=== PATIENT | female | born 1945 | race Caucasian/White ===

== ENCOUNTER 2017-01-15 15:26 | Inpatient (IN) | payer MEDICARE, OTHER ==
[~2017-01-15] VITALS: Ht 152.4 cm; Wt 33.1 kg
[2017-01-15] MEDS: RESP: ALBUTEROL 2.5 MG/IPRATROPIUM 0.5 MG NEB (SCH) NEB (10:18)
[2017-01-15 15:28] VITALS: BP 203/103; PULSE 61; RESP 14; TEMP 97.7; O2SAT 96
--- NOTE | 2017-01-15 15:46 | PD ---
Physical Exam Date Seen by Provider: Jan 15, 2017 Time Seen by Provider: 15:43 Narrative 71 YOWF C/O FOR PSYCH EVAL. FOR DEPRESSION. NO SI OR HI. SLEEPING MORE NOT TAKING CARE OF HERSELF VS REVIEWED WAITING FOR BED PLACEMENT Data Data Last Documented VS Vital Signs Date Time Temp Pulse Resp B/P Pulse Ox O2 Delivery O2 Flow Rate FiO2 01/15/17 15:28 97.7 61 14 203/103 96 Room Air MDM Supervised Visit with ZORAIDA: Gilbert Alexander Jan 15, 2017 15:46
[2017-01-15 16:13] LABS: AUTOMATED NEUTROPHIL # 3.2 TH/MM3 (1.8-7.7); BASOPHIL % 0.5 % (0.0-2.0); EOSINOPHIL # 0.1 TH/MM3 (0-0.4); EOSINOPHIL % 2.1 % (0.0-4.0); HEMATOCRIT 40.1 % (35.0-46.0); HEMO FLAGS DIFF FINAL; LYMPH % 26.9 % (9.0-44.0); LYMPHOCYTE # 1.4 TH/MM3 (1.0-4.8); MEAN CELL VOLUME 87.9 FL (80.0-100.0); MEAN CORPUSCULAR HEMOGLOBIN 30.4 PG (27.0-34.0); MEAN CORPUSCULAR HGB CONC 34.6 % (32.0-36.0); MONO % 6.8 % (0.0-8.0); NEUT % 63.7 % (16.0-70.0); PLATELET COUNT 209 TH/MM3 (150-450); RED BLOOD COUNT 4.56 MIL/MM3 (4.00-5.30); RED CELL DISTRIBUTION WIDTH 13.4 % (11.6-17.2)
--- NOTE | 2017-01-15 16:18 | RADRPT ---
EXAM DATE/TIME: 01/15/2017 15:54 [place] COMPARISON: No previous studies available for comparison. INDICATIONS : No chest complaint. Psych eval. MEDICAL HISTORY : None. SURGICAL HISTORY : None. ENCOUNTER: Initial ACUITY: 1 day PAIN SCORE: 0/10 LOCATION: Bilateral chest FINDINGS: A single AP erect portable view of the chest was obtained and demonstrates bilateral hyperinflation w ith bullous change in the upper lobes. There is mild patchy opacity at the right lung base. The heart size is within normal limits with no polar edema. There is no evidence of effusion. The bony thorax is intact. CONCLUSION: 1. Mild patchy opacity in the right lung base which could indicate early pneumonia. 2. Hyperinflation and underlying emphysema. Calvin Cabello MD on January 15, 2017 at 16:15 Board Certified Radiologist. This report was verified electronically.
[2017-01-15] MEDS ORDERED: SIMV20TA PO (16:20)
[2017-01-15] MEDS ORDERED: ASPI81CH CHEW (16:20)
[2017-01-15] MEDS ORDERED: METO25TA3 PO (16:20)
[2017-01-15] MEDS ORDERED: ALBUAER3 INH (16:26)
[2017-01-15] MEDS ORDERED: UMEC1AER INH (16:26)
--- NOTE | 2017-01-15 16:29 | PD ---
HPI Chief Complaint: Psychiatric Symptoms Time Seen by Provider: 16:29 Travel History International Travel<30 days: No Contact w/Intl Traveler<30days: No Traveled to known affect area: No History of Present Illness HPI 71 year old female with history of HTN, COPD, depression, presents to the ED voluntarily for psychiatric evaluation. Pt is accompanied by her who is very concerned. He states she has not been eating; she stopped using her oxygen at night; she has been sleeping for days in a row without getting out of bed. Pt does admit to all of this but denies it with any intention to harm herself. She was at her psychiatrists office today speaking with the DEPUTY HEAD who advised she come to our ED for psychiatric admission and further evaluation. Pt states she does not need to be here and wants to go home. She did stop drinking alcohol 3 weeks ago and stopped smoking tobacco cigarettes 2 weeks ago. Denies any acute medical needs. No other symptoms to report at this time. PFSH Past Medical History Depression: Yes High Cholesterol: Yes COPD: Yes Hypertension: Yes Past Surgical History Surgical History: No Previous Surgery Social History Alcohol Use: Yes (last drink 3 weeks ago was daily drinker for many years) Tobacco Use: No (quit 3 weeks ago) Substance Use: No Allergies-Medications (Allergen,Severity, Reaction): Coded Allergies: No Known Allergies (Verified Allergy, Unknown, 01/15/17) Reported Meds & Prescriptions Reported Meds & Active Scripts Active Reported Anoro Ellipta Inh (Umeclidinium/Vilanterol) 62.5-25 Mcg/Act Aero 1 Puff INH DAILY Proair Hfa 8.5 GM Inh (Albuterol Sulfate) 90 Mcg/Act Aer 2 Puff INH Q4-6H PRN 108 mcg/actuation Aspirin 81 Mg Chew 81 Mg CHEW DAILY Simvastatin 20 Mg Tab 20 Mg PO DAILY Metoprolol Tartrate 25 Mg Tab 25 Mg PO DAILY Review of Systems Except as stated in HPI: all other systems reviewed are Neg Physical Exam Narrative GENERAL: Thin; chronically ill appearing elderly female sitting in bed in no acute distress. SKIN: Warm and dry. HEAD: Atraumatic. Normocephalic. EYES: Pupils equal and round. No scleral icterus. No injection or drainage. ENT: No nasal bleeding or discharge. Mucous membranes pink and moist. NECK: Trachea midline. No JVD. CARDIOVASCULAR: Regular rate and rhythm. RESPIRATORY: No accessory muscle use. Diminished; to auscultation. Breath sounds equal bilaterally. GASTROINTESTINAL: Abdomen soft, non-tender, nondistended. Hepatic and splenic margins not palpable. MUSCULOSKELETAL: Extremities without clubbing, cyanosis, or edema. No obvious deformities. NEUROLOGICAL: Awake and alert. No obvious cranial nerve deficits. Motor grossly within normal limits. Five out of 5 muscle strength in the arms and legs. Normal speech. Data Data Last Documented VS Vital Signs Date Time Temp Pulse Resp B/P Pulse Ox O2 Delivery O2 Flow Rate FiO2 01/15/17 16:20 17 01/15/17 15:28 97.7 61 203/103 96 Room Air Orders Complete Blood Count With Diff (01/15/17 15:46) Comprehensive Metabolic Panel (01/15/17 15:46) Thyroid Stimulating Hormone (01/15/17 15:46) Urinalysis - C+S If Indicated (01/15/17 15:46) Psych Screen (01/15/17 15:46) Drug Screen, Random Urine (01/15/17 15:46) Alcohol (Ethanol) (01/15/17 15:46) Chest, Single Ap (01/15/17 15:46) Azithromycin (Zithromax) (01/15/17 17:00) Azithromycin (Zithromax) (01/16/17 09:00) Labs Laboratory Tests Test 01/15/17 15:55 White Blood Count 5.0 TH/MM3 Red Blood Count 4.56 MIL/MM3 Hemoglobin 13.9 GM/DL Hematocrit 40.1 % Mean Corpuscular Volume 87.9 FL Mean Corpuscular Hemoglobin 30.4 PG Mean Corpuscular Hemoglobin 34.6 % Concent Red Cell Distribution Width 13.4 % Platelet Count 209 TH/MM3 Mean Platelet Volume 8.4 FL Neutrophils (%) (Auto) 63.7 % Lymphocytes (%) (Auto) 26.9 % Monocytes (%) (Auto) 6.8 % Eosinophils (%) (Auto) 2.1 % Basophils (%) (Auto) 0.5 % Neutrophils # (Auto) 3.2 TH/MM3 Lymphocytes # (Auto) 1.4 TH/MM3 Monocytes # (Auto) 0.3 TH/MM3 Eosinophils # (Auto) 0.1 TH/MM3 Basophils # (Auto) 0.0 TH/MM3 CBC Comment DIFF FINAL Differential Comment Sodium Level 139 MEQ/L Potassium Level 4.0 MEQ/L Chloride Level 103 MEQ/L Carbon Dioxide Level 30.7 MEQ/L Anion Gap 5 MEQ/L Blood Urea Nitrogen 9 MG/DL Creatinine 0.73 MG/DL Estimat Glomerular Filtration 79 ML/MIN Rate Random Glucose 61 MG/DL Calcium Level 8.9 MG/DL Total Bilirubin 0.2 MG/DL Aspartate Amino Transf 25 U/L (AST/SGOT) Alanine Aminotransferase 20 U/L (ALT/SGPT) Alkaline Phosphatase 89 U/L Total Protein 7.4 GM/DL Albumin 3.4 GM/DL Thyroid Stimulating Hormone 1.750 uIU/ML 3rd Gen Ethyl Alcohol Level LESS THAN 3 MG/DL [facility] Medical Decision Making Medical Screen Exam Complete: Yes Emergency Medical Condition: Yes Medical Record Reviewed: Yes Differential Diagnosis mood disorder versus personality disorder versus adjustment reaction disorder Narrative Course 71 year old female presents to the ED voluntarily for psychiatric evaluation. Pt appears without distress. She is denying any acute medical needs; denies suicidal or homicidal ideations. Laboratory Tests Test 01/15/17 15:55 White Blood Count 5.0 TH/MM3 Red Blood Count 4.56 MIL/MM3 Hemoglobin 13.9 GM/DL Hematocrit 40.1 % Mean Corpuscular Volume 87.9 FL Mean Corpuscular Hemoglobin 30.4 PG Mean Corpuscular Hemoglobin 34.6 % Concent Red Cell Distribution Width 13.4 % Platelet Count 209 TH/MM3 Mean Platelet Volume 8.4 FL Neutrophils (%) (Auto) 63.7 % Lymphocytes (%) (Auto) 26.9 % Monocytes (%) (Auto) 6.8 % Eosinophils (%) (Auto) 2.1 % Basophils (%) (Auto) 0.5 % Neutrophils # (Auto) 3.2 TH/MM3 Lymphocytes # (Auto) 1.4 TH/MM3 Monocytes # (Auto) 0.3 TH/MM3 Eosinophils # (Auto) 0.1 TH/MM3 Basophils # (Auto) 0.0 TH/MM3 CBC Comment DIFF FINAL Differential Comment Sodium Level 139 MEQ/L Potassium Level 4.0 MEQ/L Chloride Level 103 MEQ/L Carbon Dioxide Level 30.7 MEQ/L Anion Gap 5 MEQ/L Blood Urea Nitrogen 9 MG/DL Creatinine 0.73 MG/DL Estimat Glomerular Filtration 79 ML/MIN Rate Random Glucose 61 MG/DL Calcium Level 8.9 MG/DL Total Bilirubin 0.2 MG/DL Aspartate Amino Transf 25 U/L (AST/SGOT) Alanine Aminotransferase 20 U/L (ALT/SGPT) Alkaline Phosphatase 89 U/L Total Protein 7.4 GM/DL Albumin 3.4 GM/DL Thyroid Stimulating Hormone 1.750 uIU/ML 3rd Gen Ethyl Alcohol Level LESS THAN 3 MG/DL Lab work is without acute concern; UA is hazy with large leukocyte esterase; 4 RBC, 23 WBC, moderate bacteria. Last Impressions Chest X-Ray 01/15/17 1546 Signed Impressions: Service Date/Time: Sunday, January 15, 2017 15:54 - CONCLUSION: 1. Mild patchy opacity in the right lung base which could indicate early pneumonia. 2. Hyperinflation and underlying emphysema. Calvin Cabello MD Pt has been given azithromycin by mouth. Dr. Corley, psychiatrist has been in to see pt. Pt will be admitted. Diagnosis Primary Impression: Severe major depression, single episode, without psychotic features Additional Impressions: UTI (urinary tract infection) Qualified Code: N39.0 - Urinary tract infection without hematuria, site unspecified COPD (chronic obstructive pulmonary disease) Qualified Code: J43.9 - Pulmonary emphysema, unspecified emphysema type Condition: Jo WilsonMima co[place] WYATT Jan 15, 2017 16:29
[2017-01-15 16:33] LABS: ANION GAP 5 MEQ/L (5-15); AST (GOT) 25 U/L (15-37); BICARBONATE 30.7 MEQ/L (21.0-32.0); BLOOD UREA NITROGEN 9 MG/DL (7-18); CHLORIDE 103 MEQ/L (98-107); GLOMERULAR FILTRATION RATE 79 ML/MIN (>89); SODIUM (NA) 139 MEQ/L (136-145)
[2017-01-15 16:40] LABS: ALCOHOL LESS THAN 3 MG/DL (0-5)
[2017-01-15 16:54] LABS: ALKALINE PHOSPHATASE 89 U/L (45-117); ALT (GPT) 20 U/L (10-53); TOTAL BILIRUBIN ADULT 0.2 MG/DL (0.2-1.0)
[2017-01-15] MEDS ORDERED: AZITHROMYCIN 250 MG TAB PO ONE (17:00)
[2017-01-15] MEDS ORDERED: LORazepam 1 MG TAB PO PRN (17:15)
[2017-01-15] MEDS ORDERED: LORazepam 0.5 MG TAB PO PRN (17:15)
[2017-01-15] MEDS ORDERED: ACETAMINOPHEN 325 MG TAB PO PRN (17:15)
[2017-01-15] MEDS ORDERED: ALUMINUM/MAGNESIUM/SIMETH 30 ML CUP PO PRN (17:15)
[2017-01-15] MEDS ORDERED: LORazepam 2 MG/ML VIAL IM PRN ×2 (17:15)
[2017-01-15] MEDS ORDERED: MAGNESIUM HYDROXIDE SUSP 30 ML CUP PO PRN (17:15)
--- NOTE | 2017-01-15 17:20 | HHI.HP ---
Provisional Diagnosis Admission Date Jan 15, 2017 at 17:01 [place] I. Major depression, severe, without psychotic features. Certification of Person's Competence To Provide Express and Informed Consent I have personally examined Dayanna Sanchez , a person being served at [facility] on, Jan 15, 2017 17:10. Express and informed consent means consent voluntarily given in writing, by a competent person, after sufficient explanation and disclosure of the subject matter involved to enable the person to make a knowing and willful decision without any element of force, fraud, deceit, duress, or other form of constraint or coercion. This person is 18 years of age or older, is not now known to be incompetent to consent to treatment with a guardian advocate, and does not have a health care surrogate or proxy currently making medical treatment decisions. I have found this person to be one of the following: [x] Competent to provide express and informed consent, as defined above, for voluntary admission to this facility and is competent to provide express and informed consent for treatment. He/she has the consistent capacity to make well reasoned, willful, and knowing decisions concerning his or her medical or mental health treatment. The person fully and consistently understands the purpose of the admission for examination/placement and is fully capable of personally exercising all rights assured under [place] Incompetent to provide express and informed consent to voluntary admission, and this is incompetent to provide express and informed consent to treatment. The person must be transferred to involuntary status and a petition for a guardian advocate filed with the Circuit Court. [] Refusing to provide express and informed consent to voluntary admission but is competent to provide express and informed consent for treatment. The person must be discharged or transferred to involuntary status. Form shall be completed within 24 hours of a person's arrival at the receiving facility and filed in the clinical record of each person: 1. Admitted on a voluntary basis 2. Permitted to provide express and informed consent to his/her own treatment 3. Allowed to transfer from involuntary to voluntary status 4. Prior to permitting a person to consent to his or her own treatment after having been previously found incompetent to consent to treatment. History of Present Illness Capacity: Has Capacity HPI This is a 71-year-old female sent to us voluntarily by a nurse practitioner in [place]. The patient is accompanied by her . She is exhibiting extreme failure to sustain herself and she weighs 32 kg. Her states she sleeps literally 90% of the time and can go to bed for 4 or 5 days straight without doing anything more than using the bathroom. The patient denies being depressed but she shows significant anhedonia, significant appetite loss and significant weight loss. She is completely socially withdrawn. She demonstrates hypersomnia to a great degree. She has no energy. She feels hopeless regarding her condition. She has concentration and memory deficits at this time. She has anxiety and irritability. She is obviously not caring for herself sufficiently to sustain her life. Review of Systems Except as stated in HPI: all other systems reviewed are Neg Past Psych History Psychological trauma history No known psychological trauma. Violence risk - others (6 mos) Minimal Violence risk - self (6 mos) Patient is starving herself to . Substance Abuse History Drugs/Alcohol past 12 months Stopped smoking cigarettes and stopped drinking alcohol approximately 3 weeks ago. Past Family Social History Coded Allergies: No Known Allergies (Verified Allergy, Unknown, 01/15/17) Reported Medications Umeclidinium-Vilanterol Inh (Anoro Ellipta Inh)62.5-25 Mcg/Act Aero1 Puff INH DAILY #1 INHALER Ref 0 01/15/17 Albuterol 8.5 GM Inh (Proair Hfa 8.5 GM Inh)90 Mcg/Act Aer2 Puff INH Q4-6H PRN ( SHORTNESS OF BREATH) #1 INHALER Ref 0 108 mcg/actuation 01/15/17 Aspirin 81 Mg Chew81 Mg CHEW DAILY Ref 0 01/15/17 Simvastatin 20 Mg Tab20 Mg PO DAILY #30 TAB Ref 0 01/15/17 Metoprolol Tartrate 25 Mg Tab25 Mg PO DAILY #30 TAB Ref 0 01/15/17 Current Medications Medications (Trade) Dose Ordered Sig/Aleah Route Start Time Stop Time Status Last Admin (Zithromax) 250 mg DAILY PO 01/16/17 09:00 01/20/17 08:59 Family History Positive for mood and anxiety disorders. Social History Lives with her of many years. He is at a loss as to how he might help her. He is gravely concerned that she will because he is unable to intervene. She is not employed. She does have a history of using alcohol daily. She also has COPD from smoking cigarettes. Patient's Strengths (min. 2) Supportive and has access to healthcare. Physical Exam GENERAL: SKIN: Warm and dry. HEAD: Normocephalic. EYES: No scleral icterus. No injection or drainage. NECK: Supple, trachea midline. No JVD or lymphadenopathy. CARDIOVASCULAR: Regular rate and rhythm without murmurs, gallops, or rubs. RESPIRATORY: Breath sounds equal bilaterally. No accessory muscle use. GASTROINTESTINAL: Abdomen soft, non-tender, nondistended. MUSCULOSKELETAL: No cyanosis, or edema. BACK: Nontender without obvious deformity. No CVA tenderness. Vital Signs Vital Signs Date Time Temp Pulse Resp B/P Pulse Ox O2 Delivery O2 Flow Rate FiO2 01/15/17 16:20 17 01/15/17 15:28 97.7 61 203/103 96 Room Air Mental Status Examination Speech: Unremarkable Orientation: x3 Memory: Unremarkable Thought Process: Organized, Goal Directed Thought Content: Bizarre thinking Hallucination Type: None Attention and Concentration: Easily Distracted Suicidal Ideation: Yes Previous Suicide Attempts: No Homicidal Ideation: No Previous Homicide Attempts: No Insight: Poor Judgment: Unrealistic Affect: Oppositional, Other Affect if Inappropriate: Blunt Mood: Appropriate, Sad, Irritable Motor Activity: Normal gait Assessment & Plan Problem List: (1) Severe major depression, single episode, without psychotic features ICD Code: F32.2 Assessment & Plan Estimated LOS: days 71-year-old female who weighs 32 kg and is starving herself to . She is at high risk of dying due to her own malnutrition coupled with her history of alcohol use and smoking. Patient has COPD as a result of the latter. This physician is admitting the patient for evaluation and treatment. She will have a CBC and comprehensive metabolic profile to determine if she is suffering from any infectious process or metabolic decompensation as a result of her lack of nutrition and depression. We will also check her vitamin B-12 and vitamin D levels as well as thyroid stimulating hormone, again as a result of her social withdrawal and lack of nutrition. She will receive an EKG to determine any cardiac conduction defects that might be adversely affected by psychotropic medications. A physical medicine consult is being obtained to evaluate her current nutritional status and risk for further decompensation. This physician spoke to the patient's nurse about her recent behavior and lack of insight. This physician also spoke with the patient's about the patient's lack of insight and recent behavior. Finally, case management will be involved to gather further information and look for appropriate disposition planning. Carlos Corley MD Jan 15, 2017 17:20
[2017-01-15] MEDS ORDERED: cloNIDine HCL 0.1 MG TAB PO PRN (18:00)
[2017-01-15] MEDS ORDERED: ALBUTEROL SULFATE 90 MCG/ACT HFA 8 GM INHALER INH PRN (18:00)
[2017-01-15] MEDS ORDERED: cloNIDine HCL 0.1 MG TAB PO ONE (18:00)
[2017-01-15] MEDS ORDERED: RESP: ALBUTEROL 2.5 MG/IPRATROPIUM 0.5 MG NEB (PRN) NEB (18:00)
[2017-01-15] MEDS: METOPROLOL TARTRATE 25 MG TAB PO SCH (18:29)
[2017-01-15] MEDS: PRAVASTATIN SOD 40 MG TAB PO SCH (18:29)
[2017-01-15 18:48] LABS: BACTERIA, URINE MOD /hpf; BLOOD, URINE NEG (NEG); COMMENT (UR) CULTURE INDICATED; CULTURE IF INDICATED CULTURE INDICATED; GLUCOSE,URINE NEG (NEG); KETONE, URINE NEG (NEG); NITRITE,URINE NEG (NEG); PH, URINE 6.5 (5.0-8.5); SQUAMOUS EPITHELIAL CELL URINE 4 /hpf (0-5); TRANSITIONAL EPI CELLS, URINE 1 /hpf; URINE COLOR YELLOW (YELLW/STRAW)
[2017-01-15 19:02] VITALS: BP 161/72
[2017-01-15 19:15] VITALS: BP 151/66; PULSE 57; RESP 20; TEMP 97.9; O2SAT 96
[2017-01-15] MEDS: UMECLIDINIUM 62.5 MCG/VILANTEROL 25 MCG INHALER INH SCH (20:00)
[2017-01-15] MEDS: guaiFENesin E.R. 600 MG TAB PO SCH (21:22)
[2017-01-15] MEDS: CEFUROXIME AXETIL 500 MG TAB PO SCH (21:38)
[2017-01-16] MEDS: RESP: ALBUTEROL 2.5 MG/IPRATROPIUM 0.5 MG NEB (SCH) NEB ×4 (04:16→20:37)
[2017-01-16 05:42] VITALS: BP 149/69; PULSE 76; RESP 18; TEMP 97.3; O2SAT 98
[2017-01-16] MEDS: METOPROLOL TARTRATE 25 MG TAB PO SCH (08:35)
[2017-01-16] MEDS: CEFUROXIME AXETIL 500 MG TAB PO SCH ×2 (08:35→21:40)
[2017-01-16] MEDS: PRAVASTATIN SOD 40 MG TAB PO SCH (08:36)
[2017-01-16] MEDS: ASPIRIN 81 MG CHEW TAB CHEW SCH (08:36)
[2017-01-16] MEDS: guaiFENesin E.R. 600 MG TAB PO SCH ×2 (08:36→21:40)
[2017-01-16] MEDS: AZITHROMYCIN 250 MG TAB PO SCH (08:36)
[2017-01-16] MEDS: UMECLIDINIUM 62.5 MCG/VILANTEROL 25 MCG INHALER INH SCH (09:00)
--- NOTE | 2017-01-16 09:12 | EKG ---
Date Performed: 01/15/2017 Time Performed: 18:12:58 PTAGE: 71 years EKG: Sinus rhythm WITH OCCASIONAL SUPRAVENTRICULAR PREMATURE COMPLEXES ST DEVIATION AND MODERATE T-WAVE ABNORMALITY, C ONSIDER LATERAL ISCHEMIA ABNORMAL ECG NO PREVIOUS TRACING DOCTOR: Duncan Ramos Interpretating Date/Time 01/16/2017 09:03:48
[2017-01-16 12:25] LABS: AUTOMATED NEUTROPHIL # 3.9 TH/MM3 (1.8-7.7); BASOPHIL % 0.4 % (0.0-2.0); EOSINOPHIL # 0.1 TH/MM3 (0-0.4); EOSINOPHIL % 2.3 % (0.0-4.0); HEMATOCRIT 42.3 % (35.0-46.0); HEMO FLAGS DIFF FINAL; LYMPHOCYTE # 1.9 TH/MM3 (1.0-4.8); MEAN CELL VOLUME 89.8 FL (80.0-100.0); MEAN CORPUSCULAR HGB CONC 33.4 % (32.0-36.0); MONO % 5.9 % (0.0-8.0); NEUT % 61.4 % (16.0-70.0); PLATELET COUNT 258 TH/MM3 (150-450); RED BLOOD COUNT 4.71 MIL/MM3 (4.00-5.30); RED CELL DISTRIBUTION WIDTH 13.6 % (11.6-17.2); WHITE BLOOD COUNT 6.4 TH/MM3 (4.0-11.0)
[2017-01-16 12:52] LABS: ANION GAP 8 MEQ/L (5-15); AST (GOT) 23 U/L (15-37); BICARBONATE 32.4 MEQ/L (21.0-32.0); BLOOD UREA NITROGEN 10 MG/DL (7-18); CHLORIDE 101 MEQ/L (98-107); GLOMERULAR FILTRATION RATE 71 ML/MIN (>89); MAGNESIUM 1.8 MG/DL (1.5-2.5); SODIUM (NA) 141 MEQ/L (136-145)
--- NOTE | 2017-01-16 13:11 | HHI.PYPN ---
Subjective Remarks Patient was seen today for psychiatric reevaluation along with medical student Effie, patient was found sleeping at about 11:30 AM, she was arousable, patient explains that she doesn't have a reason to be hospitalized in a psychiatric unit. Patient says that probably she was misinterpreted by her counselor in [place]. Patient says that she has not been depressed and she has been enjoying life as usual. She does not seem to be insightful about her recent described weight loss, anhedonia, decreased functionality, detachment from society and hypersomnia. Patient says that she never had any suicidal thoughts, and she actually reports many reasons to live for and she seems to have several protective factors for suicidality. He says that she enjoys her life her , that she has 3 grandkids, she loved reading and being around family. She says that recently her daughter was visiting her for 1 week and "and I really enjoyed that time". Patient denies hopelessness, she denies helplessness, she denies anhedonia, she denies poor appetite energy and level of concentration, she denies visual and auditory hallucinations. She denies suicidal or homicidal ideation. Patient is oriented 3, with good attention span, no gross cognitive impairment present. Review of Systems Other No somatic complaints at this moment Objective Alert: Yes [place]: Person, Place, Date, Situation Mood: Depressed Affect: Flat, Blunted Memory Intact: Immediate, Recent Hallucinations: Other (no hallucinations) Delusions: No Delusion Type: Other (no delusions elicited) Suicidal: Ideation (no SI) Homicidal: Ideation (no HI) Insight/Judgment Poor Labs Test 01/15/17 01/15/17 01/16/17 15:55 18:00 11:50 White Blood Count 5.0 TH/MM3 6.4 TH/MM3 Red Blood Count 4.56 MIL/MM3 4.71 MIL/MM3 Hemoglobin 13.9 GM/DL 14.1 GM/DL Hematocrit 40.1 % 42.3 % Mean Corpuscular Volume 87.9 FL 89.8 FL Mean Corpuscular Hemoglobin 30.4 PG 30.0 PG Mean Corpuscular Hemoglobin 34.6 % 33.4 % Concent Red Cell Distribution Width 13.4 % 13.6 % Platelet Count 209 TH/MM3 258 TH/MM3 Mean Platelet Volume 8.4 FL 8.7 FL Neutrophils (%) (Auto) 63.7 % 61.4 % Lymphocytes (%) (Auto) 26.9 % 30.0 % Monocytes (%) (Auto) 6.8 % 5.9 % Eosinophils (%) (Auto) 2.1 % 2.3 % Basophils (%) (Auto) 0.5 % 0.4 % Neutrophils # (Auto) 3.2 TH/MM3 3.9 TH/MM3 Lymphocytes # (Auto) 1.4 TH/MM3 1.9 TH/MM3 Monocytes # (Auto) 0.3 TH/MM3 0.4 TH/MM3 Eosinophils # (Auto) 0.1 TH/MM3 0.1 TH/MM3 Basophils # (Auto) 0.0 TH/MM3 0.0 TH/MM3 CBC Comment DIFF FINAL DIFF FINAL Differential Comment Sodium Level 139 MEQ/L 141 MEQ/L Potassium Level 4.0 MEQ/L 4.0 MEQ/L Chloride Level 103 MEQ/L 101 MEQ/L Carbon Dioxide Level 30.7 MEQ/L 32.4 MEQ/L Anion Gap 5 MEQ/L 8 MEQ/L Blood Urea Nitrogen 9 MG/DL 10 MG/DL Creatinine 0.73 MG/DL 0.80 MG/DL Estimat Glomerular Filtration 79 ML/MIN 71 ML/MIN Rate Random Glucose 61 MG/DL 75 MG/DL Calcium Level 8.9 MG/DL 8.7 MG/DL Total Bilirubin 0.2 MG/DL Aspartate Amino Transf 25 U/L 23 U/L (AST/SGOT) Alanine Aminotransferase 20 U/L (ALT/SGPT) Alkaline Phosphatase 89 U/L Total Protein 7.4 GM/DL Albumin 3.4 GM/DL 3.4 GM/DL Thyroid Stimulating Hormone 1.750 uIU/ML 3rd Gen Ethyl Alcohol Level LESS THAN 3 MG/DL Urine Color YELLOW Urine Turbidity HAZY Urine pH 6.5 Urine Specific [place] 1.011 Urine Protein TRACE mg/dL Urine Glucose (UA) NEG mg/dL Urine Ketones NEG mg/dL Urine Occult Blood NEG Urine Nitrite NEG Urine Bilirubin NEG Urine Urobilinogen LESS THAN 2.0 MG/DL Urine Leukocyte Esterase LARGE Urine RBC 4 /hpf Urine WBC 23 /hpf Urine Squamous Epithelial 4 /hpf Cells Urine Transitional Epithelial 1 /hpf Cells Urine Amorphous Sediment RARE Urine Bacteria MOD /hpf Microscopic Urinalysis Comment CULTURE INDICATED Urine Opiates Screen NEG Urine Barbiturates Screen NEG Urine Amphetamines Screen NEG Urine Benzodiazepines Screen NEG Urine Cocaine Screen NEG Urine Cannabinoids Screen NEG Magnesium Level 1.8 MG/DL Triglycerides Level 120 MG/DL Cholesterol Level 166 MG/DL Date/Time Procedure Status Source Growth 01/15/17 18:00 Urine Culture - Preliminary Resulted Urine Random Urine NO GROWTH IN 24 HOURS. Vitals/IOs Vital Signs Date Time Temp Pulse Resp B/P Pulse Ox O2 Delivery O2 Flow Rate FiO2 01/16/17 05:42 97.3 76 18 149/69 98 01/15/17 15:28 Room Air Assessment & Plan Problem List: (1) Severe major depression, single episode, without psychotic features Assessment & Plan: At the moment of psychiatric reevaluation, patient seems to be isolated in the unit, still bed at 11:30 AM, she seems to be hypoactive, and objectively depressed, even though she denies depression and she denies suicidal ideation. Collateral information from from her and family members crucial to complete psychiatric and psychosocial assessment. Patient will be started on Effexor 7.5 mg for depressive symptoms. Brief supportive psychotherapy provided. ICD Code: F32.2 Assessment & Plan Estimated LOS: days Justification for Cont. Inpt. Patient continues to be depressed, admits criteria for psychiatric hospitalization. Josh Brody MD Jan 16, 2017 13:11
[2017-01-16 13:17] LABS: ALKALINE PHOSPHATASE 87 U/L (45-117); ALT (GPT) 18 U/L (10-53); FREE T4 1.19 NG/DL (0.76-1.46); HDL CHOLESTEROL 57.9 MG/DL (40.0-60.0); LDL CHOLESTEROL 84 MG/DL (0-99); TOTAL BILIRUBIN ADULT 0.4 MG/DL (0.2-1.0)
[2017-01-16 16:57] LABS: HEMOGLOBIN A1a 0.9 %; HEMOGLOBIN A1b 1.5 %; HEMOGLOBIN Ao 86.5 %; HEMOGLOBIN LA1C 1.7 %; HEMOGLOBIN P3 3.5 %
--- NOTE | 2017-01-16 17:12 | PD.CONS ---
HPI Service [facility] Consult Requested By Dr. Corley Reason for Consult Anorexia and weight 31.8 kg. Please evaluate and treat Primary Care Physician Non-Staff Diagnoses: History of Present Illness Written by Tammi Graf, acting as scribe for Dr. Lindo on 01/16/17 at 17:15. This a 71-year-old female patient with past medical history which includes COPD the patient has oxygen concentrator at home uses oxygen at night when needed but has not used her oxygen, "in a while," unable to quantify, hypertension and hyperlipidemia. Patient is currently an inpatient psychiatric center. Patient reports she is here because her outpatient psychiatrist and told her she could come voluntarily or be Tian acted. Patient's current weight is 31.8 kg. Per records patient's reports patient has not been eating; she stopped using her oxygen at night; she has been sleeping for days in a row without getting out of bed. Patient reports she is always related between 100 - 110 pounds over the past year and a half she has lost approximately 30 pounds. Patient reports she has poor appetite and doesn't eat if she is not hungry. Patient reports she regular problem follows with her PCP Dr. Hebert and believes her last CT scan of the chest was approximately year ago does not report any abnormal findings. Patient quit drinking alcohol 3 weeks ago prior to drink 1-2 vodka and diet sodas per day patient also reports she quit smoking cigarettes 3 weeks ago. Patient denies shortness of breath chest pain nausea vomiting diarrhea constipation fevers or chills Review of Systems Except as stated in HPI: all other systems reviewed are Neg Past Family Social History Allergies: Coded Allergies: No Known Allergies (Verified Allergy, Unknown, 01/15/17) Past Medical History COPD the patient has oxygen concentrator at home uses oxygen at night when needed but has not used her oxygen, "in a while," unable to quantify, hypertension and hyperlipidemia Past Surgical History Denies prior surgeries Reported Medications Anoro Ellipta Inh (Umeclidinium/Vilanterol) 62.5-25 Mcg/Act Aero 1 Puff INH DAILY Proair Hfa 8.5 GM Inh (Albuterol Sulfate) 90 Mcg/Act Aer 2 Puff INH Q4-6H PRN 108 mcg/actuation Aspirin 81 Mg Chew 81 Mg CHEW DAILY Simvastatin 20 Mg Tab 20 Mg PO DAILY Metoprolol Tartrate 25 Mg Tab 25 Mg PO DAILY Active Ordered Medications Current Medications Medications (Trade) Dose Ordered Sig/Aleah Route Start Time Stop Time Status Last Admin (Zithromax) 250 mg DAILY PO 01/16/17 09:00 01/20/17 08:59 01/16/17 08:36 (Ativan) 0.5 mg Q12H PRN PO 01/15/17 17:15 (Ativan Inj) 0.5 mg Q12H PRN IM 01/15/17 17:15 (Tylenol) 650 mg Q4H PRN PO 01/15/17 17:15 (Milk Of Magnesia Liq) 30 ml DAILY PRN PO 01/15/17 17:15 (Mag-Al Plus Susp Liq) 30 ml Q6H PRN PO 01/15/17 17:15 (Proair Hfa Inh) 2 puff Q6H PRN INH 01/15/17 18:00 (Aspirin Chew) 81 mg DAILY CHEW 01/16/17 09:00 01/16/17 08:36 (Lopressor) 25 mg DAILY PO 01/15/17 18:15 01/16/17 08:35 (Pravachol) 40 mg DAILY PO 01/15/17 18:15 01/16/17 08:36 (Ceftin) 500 mg Q12HR PO 01/15/17 21:00 01/16/17 08:35 (Mucinex Er) 600 mg BID PO 01/15/17 21:00 01/16/17 08:36 (Catapres) 0.1 mg Q6H PRN PO 01/15/17 18:00 (Remeron) 15 mg HS PO 01/16/17 21:00 (Effexor Xr) 37.5 mg DAILY PO 01/16/17 13:15 Megestrol Acetate 400 mg 400 mg DAILY PO 01/16/17 18:00 (Flagyl 500 Mg Inj) 100 ml @ 100 mls/hr Q8H IV 01/16/17 16:45 UNV Family History Father secondary to heart attack patient does not recall his age at the time Social History Patient lives at home with her EtOH use quit drinking 3 weeks ago prior to that had 1-2 vodka and diet sodas per night Quit tobacco use 3 weeks ago Denies illicit drug use Physical Exam Vital Signs Vital Signs Date Time Temp Pulse Resp B/P Pulse Ox O2 Delivery O2 Flow Rate FiO2 01/16/17 05:42 97.3 76 18 149/69 98 01/15/17 19:15 97.9 57 20 151/66 96 01/15/17 19:02 61 19 161/72 98 Physical Exam GENERAL: This is an extremely thin, cachectic 71-year-old female SKIN: No rashes, ecchymoses or lesions. Cool and dry. Generalized thinning of skin HEAD: Atraumatic. Normocephalic. No temporal or scalp tenderness. EYES: Extraocular motions intact. No scleral icterus. No injection or drainage. ENT: Nose without bleeding, purulent drainage or septal hematoma. Throat without erythema, tonsillar hypertrophy or exudate. Uvula midline. Airway patent. NECK: Trachea midline. No JVD or lymphadenopathy. Supple, nontender, no meningeal signs. CARDIOVASCULAR: Regular rate and rhythm without murmurs, gallops, or rubs. RESPIRATORY: Diminished throughout GASTROINTESTINAL: Abdomen soft, non-tender, nondistended. No guarding. MUSCULOSKELETAL: Extremities without clubbing, cyanosis, or edema. No joint tenderness, effusion, or edema noted. No calf tenderness. Negative Homans sign bilaterally. NEUROLOGICAL: Awake and alert. No focal deficits appreciated. Motor and sensory grossly within normal limits. 4 out of 5 muscle strength in all muscle groups. Normal speech. Laboratory Laboratory Tests Test 01/15/17 01/16/17 18:00 11:50 Urine Color YELLOW Urine Turbidity HAZY Urine pH 6.5 Urine Specific [place] 1.011 Urine Protein TRACE Urine Glucose (UA) NEG Urine Ketones NEG Urine Occult Blood NEG Urine Nitrite NEG Urine Bilirubin NEG Urine Urobilinogen LESS THAN 2.0 Urine Leukocyte Esterase LARGE Urine RBC 4 Urine WBC 23 Urine Squamous Epithelial 4 Cells Urine Transitional Epithelial 1 Cells Urine Amorphous Sediment RARE Urine Bacteria MOD Microscopic Urinalysis Comment CULTURE INDICATED Urine Opiates Screen NEG Urine Barbiturates Screen NEG Urine Amphetamines Screen NEG Urine Benzodiazepines Screen NEG Urine Cocaine Screen NEG Urine Cannabinoids Screen NEG White Blood Count 6.4 Red Blood Count 4.71 Hemoglobin 14.1 Hematocrit 42.3 Mean Corpuscular Volume 89.8 Mean Corpuscular Hemoglobin 30.0 Mean Corpuscular Hemoglobin 33.4 Concent Red Cell Distribution Width 13.6 Platelet Count 258 Mean Platelet Volume 8.7 Neutrophils (%) (Auto) 61.4 Lymphocytes (%) (Auto) 30.0 Monocytes (%) (Auto) 5.9 Eosinophils (%) (Auto) 2.3 Basophils (%) (Auto) 0.4 Neutrophils # (Auto) 3.9 Lymphocytes # (Auto) 1.9 Monocytes # (Auto) 0.4 Eosinophils # (Auto) 0.1 Basophils # (Auto) 0.0 CBC Comment DIFF FINAL Differential Comment Sodium Level 141 Potassium Level 4.0 Chloride Level 101 Carbon Dioxide Level 32.4 Anion Gap 8 Blood Urea Nitrogen 10 Creatinine 0.80 Estimat Glomerular Filtration 71 Rate Random Glucose 75 Calcium Level 8.7 Phosphorus Level 3.3 Magnesium Level 1.8 Total Bilirubin 0.4 Aspartate Amino Transf 23 (AST/SGOT) Alanine Aminotransferase 18 (ALT/SGPT) Alkaline Phosphatase 87 Total Protein 7.3 Albumin 3.4 Triglycerides Level 120 Cholesterol Level 166 LDL Cholesterol 84 HDL Cholesterol 57.9 Cholesterol/HDL Ratio 2.86 Vitamin B12 Level 1493 25-Hydroxy Vitamin D Total 30.0 Free Thyroxine 1.19 Thyroid Stimulating Hormone 3.090 3rd Gen Date/Time Procedure Status Source Growth 01/15/17 18:00 Urine Culture - Preliminary Resulted Urine Random Urine NO GROWTH IN 24 HOURS. Result Diagram: 01/16/17 1150 01/16/17 1150 Imaging Last Impressions Chest X-Ray 01/15/17 1546 Signed Impressions: Service Date/Time: Sunday, January 15, 2017 15:54 - CONCLUSION: 1. Mild patchy opacity in the right lung base which could indicate early pneumonia. 2. Hyperinflation and underlying emphysema. Calvin Cabello MD Assessment and Plan Assessment and Plan This a 71-year-old female patient with past medical history which includes COPD the patient has oxygen concentrator at home uses oxygen at night when needed but has not used her oxygen, "in a while," unable to quantify, hypertension and hyperlipidemia. Patient is currently an inpatient psychiatric center. Patient' s current weight is 31.8 kg. Per records patient's reports patient has not been eating; she stopped using her oxygen at night; she has been sleeping for days in a row without getting out of bed. Patient reports over the past year and a half she has lost approximately 30 pounds. Patient reports she has poor appetite and doesn't eat if she is not hungry. Patient reports she regular problem follows with her PCP Dr. Hebert and believes her last CT scan of the chest was approximately year ago does not report any abnormal findings. Severe malnutrition Anorexia 71-year-old female patient currently weighing 31.8 kg appears cachectic Consult dietitian [place] Also followed by psychiatry Pneumonia RLL treat for aspiration pneumonia Chest x-ray reviewed and reveals mild patchy opacities in the right lung base which could indicate early pneumonia. Hyperinflation and underlying emphysema Add metronidazole Continue azithromycin and Ceftin UTI- culture pending Urinalysis reviewed and reveals large amount leukocyte esterase, moderate amount of urine bacteria Continue Ceftin Await culture results will adjust once culture results available COPD- stable does not appear to be in acute exacerbation Continue home Anoro Ellipta inhaler daily Continue Pro Air rescue inhaler as needed Hypertension- stable Continue metoprolol 25 mg daily Monitor blood pressure trend will adjust as necessary Hyperlipidemia- chronic Continue simvastatin 20 mg daily DVT prophylaxis patient is ambulatory and low risk Discussed with patient This note was transcribed by pattie Graf. I, Dr. Alessio Workman personally performed the history, physical exam, and medical decision making; and confirmed the accuracy of the information in the transcribed note. Authenticated by Dr. Alessio Workman on 01/16/17 at 17:22. Tammi Graf Jan 16, 2017 17:12 Alessio Roach MD Jan 16, 2017 23:10
[2017-01-16] MEDS ORDERED: metroNIDAZOLE 500 MG INJ 100 ML IV SCH (18:00)
[2017-01-16 18:29] VITALS: BP 130/57; PULSE 56; RESP 16; TEMP 97.4; O2SAT 95
[2017-01-16] MEDS: VENLAFAXINE HCL XR 37.5 MG CAP PO SCH (18:32)
[2017-01-16] MEDS ORDERED: DIATRIZOATE MEGLUM/DIATRIZOATE SOD 9 ML CUP PO ONE (19:00)
[2017-01-16] MEDS: MIRTAZAPINE 15 MG TAB PO SCH (21:40)
[2017-01-17] MEDS: RESP: ALBUTEROL 2.5 MG/IPRATROPIUM 0.5 MG NEB (SCH) NEB ×3 (03:15→20:32)
[2017-01-17 05:32] VITALS: BP 105/67; PULSE 96; RESP 18; TEMP 98.2
[2017-01-17] MEDS ORDERED: DIATRIZOATE MEGLUM/DIATRIZOATE SOD 9 ML CUP PO ONE (07:30)
[2017-01-17] MEDS: UMECLIDINIUM 62.5 MCG/VILANTEROL 25 MCG INHALER INH SCH (08:34)
[2017-01-17] MEDS: PRAVASTATIN SOD 40 MG TAB PO SCH (08:34)
[2017-01-17] MEDS: AZITHROMYCIN 250 MG TAB PO SCH (08:35)
[2017-01-17] MEDS: METOPROLOL TARTRATE 25 MG TAB PO SCH (08:35)
[2017-01-17] MEDS: VENLAFAXINE HCL XR 37.5 MG CAP PO SCH (08:35)
[2017-01-17] MEDS: guaiFENesin E.R. 600 MG TAB PO SCH ×2 (08:35→21:38)
[2017-01-17] MEDS: CEFUROXIME AXETIL 500 MG TAB PO SCH ×2 (08:35→21:38)
[2017-01-17] MEDS: ASPIRIN 81 MG CHEW TAB CHEW SCH (08:35)
[2017-01-17] MEDS: MEGESTROL ACETATE SUSP 400 MG/10 ML CUP PO SCH ×2 (09:00→17:05)
[2017-01-17] MEDS ORDERED: IOHEXOL 350 MG/ML 10 ML VIAL (for RAD DIAG) IV ONE (10:49)
--- NOTE | 2017-01-17 11:08 | RADRPT ---
EXAM DATE/TIME: 01/17/2017 10:29 [facility] COMPARISON: No previous studies available for comparison. INDICATIONS : Abnormal weight loss IV CONTRAST: 75 cc Omnipaque 350 (iohexol) IV ; Cumulative dose for multiple exams. ORAL CONTRAST: Prescribed oral contrast ingested. RADIATION DOSE: 3.39 CTDIvol (mGy) ; Combined studies - Thorax/Abdomen/Pelvis MEDICAL HISTORY : Hypertension. Chronic obstructive pulmonary disease. SURGICAL HISTORY : None. ENCOUNTER: Initial ACUITY: 1 day PAIN SCALE: 0/10 LOCATION: abdomen TECHNIQUE: Volumetric scanning of the abdomen and pelvis was performed. Using automated exposure control and ad justment of the mA and/or kV according to patient size, radiation dose was kept as low as reasonably achievable to obtain optimal diagnostic quality images. DICOM format image data is available electro nically for review and comparison. FINDINGS: LOWER LUNGS: There is abnormal focal opacity in the right lung base which is masslike in appearance on several irais ges. Please see chest CT from this date for further details. LIVER: Homogeneous density without lesion. There is no dilation of the biliary tree. No calcified gallston es. SPLEEN: Normal size without lesion. PANCREAS: Within normal limits. KIDNEYS: Normal in size and shape. There is no mass, stone or hydronephrosis. ADRENAL GLANDS: Within normal limits. VASCULAR: There is no aortic aneurysm. Atherosclerotic changes are noted in the aorta with mild dilatation and calcification. BOWEL/MESENTERY: The stomach, small bowel, and colon demonstrate no acute abnormality. There is no free intraperitone al air or fluid. ABDOMINAL WALL: Within normal limits. RETROPERITONEUM: There is no lymphadenopathy. BLADDER: No wall thickening or mass. REPRODUCTIVE: Within normal limits. INGUINAL: There is no lymphadenopathy or hernia. MUSCULOSKELETAL: Within normal limits for patient age. CONCLUSION: 1. No evidence of primary tumor or metastatic disease in the abdomen. 2. Abnormal focal opacity in the right lateral lung base which is somewhat masslike in configuration on several images. Please see chest CT for further details. Calvin Cabello MD on January 17, 2017 at 11:04 Board Certified Radiologist. This report was verified electronically.
--- NOTE | 2017-01-17 11:19 | RADRPT ---
EXAM DATE/TIME: 01/17/2017 10:29 [facility] COMPARISON: CHEST SINGLE AP, January 15, 2017, 15:54. INDICATIONS : Abnormal weight loss and chronic obstructive pulmonary disease. Abnormal chest x-ray with mild patchy opacity in the right lung base of concern for early pneumonia. IV CONTRAST: 75 cc Omnipaque 350 (iohexol) IV ; Cumulative dose for multiple exams. RADIATION DOSE: 3.39 CTDIvol (mGy) ; Combined studies - Thorax/Abdomen/Pelvis MEDICAL HISTORY : Hypertension. Chronic obstructive pulmonary disease. SURGICAL HISTORY : None. ENCOUNTER: Initial ACUITY: 1 day PAIN SCALE: 0/10 LOCATION: chest TECHNIQUE: Volumetric scanning of the chest was performed. Using automated exposure control and adjustment of t he mA and/or kV according to patient size, radiation dose was kept as low as reasonably achievable to obtain optimal diagnostic quality images. DICOM format image data is available electronically for review and comparison. Follow-up recommendations for detected pulmonary nodules are based at a minimum on nodule size and pa tient risk factors according to Fleischner Society Guidelines. FINDINGS: LUNGS: The lungs are hyperinflated and there is moderate to severe underlying emphysema. There is patchy opa city in the right lateral lower lobe with more consolidative masslike appearance inferiorly. This are a measures up to approximately 2 x 1.5 cm. PLEURA: There is no pleural thickening or pleural effusion. MEDIASTINUM: The heart and great vessels demonstrate no acute abnormality. There is no mediastinal or hilar lymph adenopathy. AXILLAE: Within normal limits. No lymphadenopathy. SKELETAL: Within normal limits for patient age. MISCELLANEOUS: The visualized upper abdominal organs demonstrate no acute abnormality. CONCLUSION: 1. Focal consolidative opacity in the right lower lobe which is somewhat masslike in appearance on se veral images. This is nonspecific but most likely is infectious or inflammatory. Short-term CT follow up is recommended after treatment in 3-4 weeks to rule out the possibility of an underlying true mass . 2. Underlying emphysema and hyperinflation. Calvin Cabello MD on January 17, 2017 at 11:09 Board Certified Radiologist. This report was verified electronically.
--- NOTE | 2017-01-17 14:21 | HHI.PYPN ---
Subjective Remarks Patient is seen for psychiatric reevaluation, patient is found in the recreational area of the 2600 unit, patient is completely oppositional and resistant to the reevaluation, she says that she has nothing to speak, that she wants to go home now. She says that her family is lying about her. When she was asked about the reason she was recommended to be admitted, the reason for using so many weights, and white is her family so concerned, she decided not to talk in spite of multiple redirections. Objective Alert: Yes [place]: Person, Place, Date, Situation Mood: Depressed Affect: Flat, Blunted Memory Intact: Immediate, Recent Hallucinations: Other (no hallucinations) Delusions: No Delusion Type: Other (no delusions elicited) Suicidal: Ideation (no SI) Homicidal: Ideation (no HI) Insight/Judgment Poor Labs Date/Time Procedure Status Source Growth 01/15/17 18:00 Urine Culture - Final Complete Urine Random Urine 50-100,000 CFU/ML MIXED GRAM POSITIVE... Vitals/IOs Vital Signs Date Time Temp Pulse Resp B/P Pulse Ox O2 Delivery O2 Flow Rate FiO2 01/17/17 05:32 98.2 96 18 105/67 01/16/17 18:29 95 01/15/17 15:28 Room Air Intake and Output 01/16/17 01/16/17 01/17/17 08:00 16:00 00:00 Intake Total 240 ml Balance 240 ml Assessment & Plan Problem List: (1) Severe major depression, single episode, without psychotic features Assessment & Plan: Continue current psychotropics, continuing individual and group therapy. ICD Code: F32.2 Assessment & Plan Estimated LOS: days Justification for Cont. Inpt. A she continues to show symptoms pathology of depression, has an elevated at bedtime to decompensate at a lower level of care. Josh Brody MD Jan 17, 2017 14:21
--- NOTE | 2017-01-17 14:44 | EKG ---
Date Performed: 01/16/2017 Time Performed: 15:01:58 PTAGE: 71 years EKG: SINUS BRADYCARDIA ST DEVIATION AND MODERATE T-WAVE ABNORMALITY, CONSIDER LATERAL ISCHEMIA A BNORMAL ECG PREVIOUS TRACING : 01/15/2017 18.12 Since previous tracing, no significant change noted DOCTOR: Mike Jorge Interpretating Date/Time 01/17/2017 14:43:48
[2017-01-17] MEDS: metroNIDAZOLE 500 MG TAB PO SCH ×2 (16:00→22:00)
--- NOTE | 2017-01-17 18:00 | HHI.PR ---
Subjective Remarks Follow-up severe malnutrition, anorexia, pneumonia right lower lobe, COPD, hypertension hyperlipidemia Patient seen completing dinner in the day room. Patient reports she feels well looking forward to being discharged offers no specific complaints at this time Patient reports she is tolerating food well and eating more here that she does at home. Patient met with dietitian today and is looking for staring ensure tomorrow Patient denies cough shortness of breath chest pain nausea vomiting diarrhea constipation fevers or chills Objective Vitals Vital Signs Date Time Temp Pulse Resp B/P Pulse Ox O2 Delivery O2 Flow Rate FiO2 01/17/17 05:32 98.2 96 18 105/67 01/16/17 18:29 97.4 56 16 130/57 95 I/O 01/16/17 01/16/17 01/16/17 01/17/17 01/17/17 01/17/17 07:00 15:00 23:00 07:00 15:00 23:00 Intake Total 240 ml Balance 240 ml Intake Oral 240 ml Result Diagram: 01/16/17 1150 01/16/17 1150 Imaging Last Impressions Chest CT 01/16/17 0000 Signed Impressions: Service Date/Time: Tuesday, January 17, 2017 10:29 - CONCLUSION: 1. Focal consolidative opacity in the right lower lobe which is somewhat masslike in appearance on several images. This is nonspecific but most likely is infectious or inflammatory. Short-term CT followup is recommended after treatment in 3-4 weeks to rule out the possibility of an underlying true mass. 2. Underlying emphysema and hyperinflation. Calvin Cabello MD Abdomen/Pelvis CT 01/16/17 0000 Signed Impressions: Service Date/Time: Tuesday, January 17, 2017 10:29 - CONCLUSION: 1. No evidence of primary tumor or metastatic disease in the abdomen. 2. Abnormal focal opacity in the right lateral lung base which is somewhat masslike in configuration on several images. Please see chest CT for further details. Calvin Cabello MD Chest X-Ray 01/15/17 1546 Signed Impressions: Service Date/Time: Sunday, January 15, 2017 15:54 - CONCLUSION: 1. Mild patchy opacity in the right lung base which could indicate early pneumonia. 2. Hyperinflation and underlying emphysema. Calvin Cabello MD Objective Remarks GENERAL: This is an extremely thin, cachectic 71-year-old female SKIN: No rashes, ecchymoses or lesions. Cool and dry. Generalized thinning of skin HEAD: Atraumatic. Normocephalic. No temporal or scalp tenderness. EYES: Extraocular motions intact. No scleral icterus. No injection or drainage. ENT: Nose without bleeding, purulent drainage or septal hematoma. Throat without erythema, tonsillar hypertrophy or exudate. Uvula midline. Airway patent. NECK: Trachea midline. No JVD or lymphadenopathy. Supple, nontender, no meningeal signs. CARDIOVASCULAR: Regular rate and rhythm without murmurs, gallops, or rubs. RESPIRATORY: Diminished throughout GASTROINTESTINAL: Abdomen soft, non-tender, nondistended. No guarding. MUSCULOSKELETAL: Extremities without clubbing, cyanosis, or edema. No joint tenderness, effusion, or edema noted. No calf tenderness. Negative Homans sign bilaterally. NEUROLOGICAL: Awake and alert. No focal deficits appreciated. Motor and sensory grossly within normal limits. 4 out of 5 muscle strength in all muscle groups. Normal speech. A/P Assessment and Plan This a 71-year-old female patient with past medical history which includes COPD the patient has oxygen concentrator at home uses oxygen at night when needed but has not used her oxygen, "in a while," unable to quantify, hypertension and hyperlipidemia. Patient is currently an inpatient psychiatric center. Patient' s current weight is 31.8 kg. Per records patient's reports patient has not been eating; she stopped using her oxygen at night; she has been sleeping for days in a row without getting out of bed. Patient reports over the past year and a half she has lost approximately 30 pounds. Patient reports she has poor appetite and doesn't eat if she is not hungry. Patient reports she regular problem follows with her PCP Dr. Hebert and believes her last CT scan of the chest was approximately year ago does not report any abnormal findings. Severe malnutrition Anorexia 71-year-old female patient currently weighing 31.8 kg appears cachectic Consult dietitian- appreciate recommendations 1.Monitor for possible re-feeding syndrome 2.[facility] [employer] Preferences 3.Discussed additional foods/liquids pt can "write-in" on her menus 4.Send Chocolate Ensure Enlive bid 5.Dietitian Following Continue [place] Also followed by psychiatry Pneumonia RLL treat for aspiration pneumonia Chest x-ray reviewed and reveals mild patchy opacities in the right lung base which could indicate early pneumonia. Hyperinflation and underlying emphysema Continue azithromycin, Ceftin and metronidazole CT abdomen pelvis reviewed and reveals: No evidence of primary tumor or metastatic disease in the abdomen. Abnormal focal capacity in the right lateral lung base which is somewhat masslike configuration on several images CT chest reviewed and reveals: 1. Focal consolidative opacity in the right lower lobe which is somewhat masslike in appearance on several images. This is nonspecific but most likely is infectious or inflammatory. Short-term CT followup is recommended after treatment in 3-4 weeks to rule out the possibility of an underlying true mass. 2. Underlying emphysema and hyperinflation. CT results reviewed with patient and Dr. Lindo given patient's tobacco use history. She started smoking at age 15 from age [age] years old patient smoked 1.5-2 pack-a-day smoker and recently stopped smoking 3 weeks ago. Patient has also lost 30 pound weight loss over the past year. This is concerning for possible malignancy Consult pulmonology for further evaluation and recommendations Urinalysis reviewed and reveals large amount leukocyte esterase, moderate amount of urine bacteria Urine culture reviewed shows 10,000-50,000 mixed gram-positive purnima COPD- stable does not appear to be in acute exacerbation Continue home Anoro Ellipta inhaler daily Continue Pro Air rescue inhaler as needed Hypertension- stable Continue metoprolol 25 mg daily Monitor blood pressure trend will adjust as necessary Hyperlipidemia- chronic Continue simvastatin 20 mg daily DVT prophylaxis patient is ambulatory and low risk Discussed with patient and Tammi Adams Jan 17, 2017 18:00
[2017-01-17 20:40] VITALS: BP 159/70; PULSE 64; RESP 16; TEMP 98.1; O2SAT 98
[2017-01-17] MEDS: MIRTAZAPINE 15 MG TAB PO SCH (21:38)
[2017-01-18] MEDS: RESP: ALBUTEROL 2.5 MG/IPRATROPIUM 0.5 MG NEB (SCH) NEB ×4 (03:29→21:52)
[2017-01-18 05:53] VITALS: BP 132/60; PULSE 75; RESP 16; TEMP 98; O2SAT 94
[2017-01-18] MEDS: metroNIDAZOLE 500 MG TAB PO SCH ×3 (06:00→21:21)
[2017-01-18] MEDS: CEFUROXIME AXETIL 500 MG TAB PO SCH ×2 (08:27→21:20)
[2017-01-18] MEDS: PRAVASTATIN SOD 40 MG TAB PO SCH (08:28)
[2017-01-18] MEDS: MEGESTROL ACETATE SUSP 400 MG/10 ML CUP PO SCH (08:28)
[2017-01-18] MEDS: AZITHROMYCIN 250 MG TAB PO SCH (08:28)
[2017-01-18] MEDS: guaiFENesin E.R. 600 MG TAB PO SCH ×2 (08:28→21:00)
[2017-01-18] MEDS: ASPIRIN 81 MG CHEW TAB CHEW SCH (08:28)
[2017-01-18] MEDS: VENLAFAXINE HCL XR 37.5 MG CAP PO SCH (08:28)
[2017-01-18] MEDS: METOPROLOL TARTRATE 25 MG TAB PO SCH (08:28)
[2017-01-18] MEDS: UMECLIDINIUM 62.5 MCG/VILANTEROL 25 MCG INHALER INH SCH (08:35)
--- NOTE | 2017-01-18 13:37 | MB ---
cc: Sonal VERDE M.D. DATE OF CONSULTATION: 01/18/2017. HISTORY OF PRESENT ILLNESS: Ms. Sanchez is a 71-year-old white female with a history of lifelong smoking and underlying COPD followed as an outpatient by Dr. Hebert on Anoro and oxygen for sleep. She was admitted to the psychiatric unit for treatment of depression. Initial chest x-ray revealed a mild patchy density at the right base, possible early pneumonia. A CT scan was done in light of the prior smoking history, which revealed a focal consolidation at the right lower lobe, nonspecific possibly infectious or inflammatory, although malignancy cannot be excluded. No effusions were noted. She also has fairly extensive emphysema on the scan. I interviewed the patient in psychiatry today and she denies any chest symptoms at the present time. She has a chronic cough and does not seem to have changed recently, produces very little sputum and has had no hemoptysis or chest pain. She actually denies dyspnea. She has smoked all her adult life, although apparently she quit smoking about two or three weeks ago. She may also drink to excess and admits drinking at least 2 ounces of vodka a day, although she quit doing that a couple of weeks ago as well. PAST MEDICAL HISTORY: 1. No surgeries. 2. Only medical issue has been COPD and hypertension. MEDICATIONS: 1. Anoro. 2. ProAir. 3. Aspirin. 4. Simvastatin. 5. Metoprolol. ALLERGIES: NONE KNOWN. SOCIAL HISTORY: and living with her . Smoking and drinking as noted above. REVIEW OF SYSTEMS: Appetite has been poor. She has lost weight. She is not eating well. One of the reasons she was brought into the hospital was because she was refusing to eat. PHYSICAL EXAMINATION: GENERAL: Frail elderly-appearing white female no distress at rest. VITAL SIGNS: 98 degrees, pulse 70, respiratory rate 18, sat 96% on room air. LYMPHATIC: No adenopathy in the neck, supraclavicular region. CHEST: Chest is severely diminished throughout but no congestion or wheezes. No rales. HEART: Regular rhythm. No harsh murmur. EXTREMITIES: No peripheral edema and no cyanosis. IMAGING STUDIES: CT scan is reviewed. She has a patchy density at the right base of unclear etiology and extensive emphysematous changes. DISCUSSION: Ms. Sanchez presents with a longstanding smoking history and an irregular density at the right base. Apparently she has had a CT scan of her chest as a screening roughly a year ago but we do not have that copy. Dr. Hebert had ordered that as an outpatient. I would suggest 10 days of Cipro in case there is any congestion with infection at that base and a follow-up scan within the next 4-6 weeks as an outpatient; that could be arranged through her primary care physician, and hopefully at the same facility she had the prior films so they could see if there has been a change. I have explained to Mrs. Sanchez how important this follow-up scan will be because if the area persists or is increasing in any fashion over that period of time, a biopsy would have to be considered. Given the location, a percutaneous biopsy would be the most direct approach. Again, I have emphasized to the patient, and it should be noted on discharge summary papers to her primary care physician that she needs a follow-up scan in about 4-6 weeks, and if still abnormal, consider further diagnostic studies. ADDENDUM: After further review of Mrs. Malone medical record, I noted that she was on oral antibiotics including Ceftin, Flagyl and Zithromax. I would suggest completing at least a ten day course of Ceftin again to treat any possible underlying pulmonary infection that might be causing this infiltrative density at the right base. R. MD WILBUR Upton/ENRIQUE /1:18 PM /12:11 PM
--- NOTE | 2017-01-18 14:31 | HHI.PYPN ---
Subjective Remarks Patient was seen and case discussed with nursing. Patient has poor insight into her admission. Cannot identify reason why she was admitted. She denies suicidal ideation intent or plan. She says her mood is "great." Minimizes her alcohol abuse. Is behaving well on the unit compliant with medications Objective Alert: Yes [place]: Person, Place, Date, Situation Mood: Calm Affect: Blunted Memory Intact: Immediate, Recent Hallucinations: Other (no hallucinations) Delusions: No Delusion Type: Other (no delusions elicited) Suicidal: Ideation (no SI) Homicidal: Ideation (no HI) Insight/Judgment Poor Labs Date/Time Procedure Status Source Growth 01/15/17 18:00 Urine Culture - Final Complete Urine Random Urine 50-100,000 CFU/ML MIXED GRAM POSITIVE... Vitals/IOs Vital Signs Date Time Temp Pulse Resp B/P Pulse Ox O2 Delivery O2 Flow Rate FiO2 01/18/17 05:53 98.0 75 16 132/60 94 01/15/17 15:28 Room Air Assessment & Plan Problem List: (1) Severe major depression, single episode, without psychotic features ICD Code: F32.2 Assessment & Plan Continue current treatment plan Justification for Cont. Inpt. Patient would decompensate in a less restrictive setting Dheeraj Martin DO Jan 18, 2017 14:31
[2017-01-18 17:00] VITALS: BP 138/64; PULSE 64; RESP 17; TEMP 98.2; O2SAT 95
[2017-01-18] MEDS: MIRTAZAPINE 15 MG TAB PO SCH (21:20)
[2017-01-19] MEDS: RESP: ALBUTEROL 2.5 MG/IPRATROPIUM 0.5 MG NEB (SCH) NEB ×3 (04:00→16:00)
[2017-01-19] MEDS: metroNIDAZOLE 500 MG TAB PO SCH ×3 (05:58→22:15)
[2017-01-19 07:09] VITALS: BP 173/63; PULSE 68; RESP 16; O2SAT 96
[2017-01-19] MEDS: VENLAFAXINE HCL XR 37.5 MG CAP PO SCH (09:00)
[2017-01-19] MEDS: UMECLIDINIUM 62.5 MCG/VILANTEROL 25 MCG INHALER INH SCH (09:00)
[2017-01-19] MEDS: METOPROLOL TARTRATE 25 MG TAB PO SCH (09:00)
[2017-01-19] MEDS: ASPIRIN 81 MG CHEW TAB CHEW SCH (09:00)
[2017-01-19] MEDS: guaiFENesin E.R. 600 MG TAB PO SCH ×2 (09:00→21:00)
[2017-01-19] MEDS: AZITHROMYCIN 250 MG TAB PO SCH (09:00)
[2017-01-19] MEDS: PRAVASTATIN SOD 40 MG TAB PO SCH (09:00)
[2017-01-19] MEDS: CEFUROXIME AXETIL 500 MG TAB PO SCH ×2 (09:00→22:15)
[2017-01-19] MEDS: MEGESTROL ACETATE SUSP 400 MG/10 ML CUP PO SCH (09:00)
--- NOTE | 2017-01-19 16:15 | HHI.PYPN ---
Subjective Remarks Patient was seen and case discussed with nursing. Patient is pleasant and cooperative with exam. Per nursing she is eating well but sleeping poorly. However one of the other patients is loud at nighttime. Dietary consult was ordered. Patient says she will be visiting with her later today. Mood is "good." Patient says "I have never had a suicidal thought in my life." Compliant with medications and behaving well on the unit Objective Alert: Yes [place]: Person, Place, Date, Situation Mood: Calm Affect: Restricted Memory Intact: Immediate, Recent Hallucinations: Other (no hallucinations) Delusions: No Delusion Type: Other (no delusions elicited) Suicidal: Ideation (no SI) Homicidal: Ideation (no HI) Insight/Judgment Improving Labs Date/Time Source Procedure Growth Status 01/15/17 18:00 Urine Random Urine Urine Culture - Final 50-100,000 CFU/ML MIXED GRAM POSITIVE... Complete Vitals/IOs Vital Signs Date Time Temp Pulse Resp B/P (MAP) Pulse Ox O2 Delivery O2 Flow Rate FiO2 01/19/17 07:09 68 16 173/63 (99) 96 01/18/17 17:00 98.2 01/15/17 15:28 Room Air Assessment & Plan Problem List: (1) Severe major depression, single episode, without psychotic features ICD Codes: F32.2 - Major depressive disorder, single episode, severe without psychotic features Status: Acute Assessment & Plan Continue current treatment plan Justification for Cont. Inpt. Patient would decompensate in a less restrictive setting Dheeraj Martin DO Jan 19, 2017 16:15
[2017-01-19 18:43] VITALS: BP 121/56; PULSE 63; RESP 17; TEMP 98.7; O2SAT 97
[2017-01-19] MEDS: MIRTAZAPINE 15 MG TAB PO SCH (22:15)
[2017-01-20] MEDS: metroNIDAZOLE 500 MG TAB PO SCH ×3 (06:26→21:21)
[2017-01-20] MEDS: METOPROLOL TARTRATE 25 MG TAB PO SCH (09:00)
[2017-01-20] MEDS: ASPIRIN 81 MG CHEW TAB CHEW SCH (09:02)
[2017-01-20] MEDS: guaiFENesin E.R. 600 MG TAB PO SCH ×2 (09:02→21:00)
[2017-01-20] MEDS: PRAVASTATIN SOD 40 MG TAB PO SCH (09:02)
[2017-01-20] MEDS: UMECLIDINIUM 62.5 MCG/VILANTEROL 25 MCG INHALER INH SCH (09:02)
[2017-01-20] MEDS: CEFUROXIME AXETIL 500 MG TAB PO SCH ×2 (09:02→21:00)
[2017-01-20] MEDS: VENLAFAXINE HCL XR 37.5 MG CAP PO SCH (09:02)
[2017-01-20] MEDS: MEGESTROL ACETATE SUSP 400 MG/10 ML CUP PO SCH (09:03)
--- NOTE | 2017-01-20 12:51 | HHI.PYPN ---
Subjective Remarks Patient was seen today for psychiatric reevaluation along with FEDE Huerta, patient explains that she has not been very happy of being secluded in a psychiatric unit. She says that her family exaggerated her situation and she has been sad, she has been losing weight "is true, but my weight loss is not due to depression". Patient completely minimizes her feeling of depression and emotions. She says that even though she looks depressed, she is not "as if I am depressed is my business and nobody else". She reports improved sleep in the unit, good appetite, good level of concentration, denies suicidal and homicidal ideation, denies visual and auditory hallucinations. As per nursing report patient is more engaged in activities and talking more often with peers and staff. Patient is compliant with medications, no significant side effects. Review of Systems Other No somatic complaints Objective Alert: Yes [place]: Person, Place, Date, Situation Mood: Calm Affect: Restricted Memory Intact: Immediate, Recent Hallucinations: Other (no hallucinations) Delusions: No Delusion Type: Other (no delusions elicited) Suicidal: Ideation (no SI) Homicidal: Ideation (no HI) Insight/Judgment Poor Labs Date/Time Source Procedure Growth Status 01/15/17 18:00 Urine Random Urine Urine Culture - Final 50-100,000 CFU/ML MIXED GRAM POSITIVE... Complete Vitals/IOs Vital Signs Date Time Temp Pulse Resp B/P (MAP) Pulse Ox O2 Delivery O2 Flow Rate FiO2 01/19/17 18:43 98.7 63 17 121/56 (77) 97 Assessment & Plan Problem List: (1) Severe major depression, single episode, without psychotic features ICD Codes: F32.2 - Major depressive disorder, single episode, severe without psychotic features Status: Acute Assessment & Plan Estimated LOS: days Justification for Cont. Inpt. Patient shows modest response to antidepressants. Continues to minimize depression. However, reports improved sleep and appetite and also is more engagements interpersonal relationships. Will increase Remeron to 30 mg at bedtime and Effexor to 75. Discharge Planning Patient has an elevated risk to decompensate at the lower level of care. Josh Brody MD Jan 20, 2017 12:51
[2017-01-20 20:05] VITALS: BP 120/58; PULSE 67; RESP 16; TEMP 98.5; O2SAT 100
[2017-01-20] MEDS ORDERED: MIRTAZAPINE 15 MG TAB PO SCH (21:00)
--- NOTE | 2017-01-20 22:47 | HHI.PR ---
Subjective Remarks Deferred entry - patient seen at 5:30 pm Patient states she is doing better denies cough, cp, sob denies fevers/chills states her appetite is improving Objective Vitals Vital Signs Date Time Temp Pulse Resp B/P (MAP) Pulse Ox O2 Delivery O2 Flow Rate FiO2 01/20/17 20:05 98.5 67 16 120/58 (78) 100 Result Diagram: 01/16/17 1150 01/16/17 1150 Imaging Last Impressions Chest CT 01/16/17 0000 Signed Impressions: Service Date/Time: Tuesday, January 17, 2017 10:29 - CONCLUSION: 1. Focal consolidative opacity in the right lower lobe which is somewhat masslike in appearance on several images. This is nonspecific but most likely is infectious or inflammatory. Short-term CT followup is recommended after treatment in 3-4 weeks to rule out the possibility of an underlying true mass. 2. Underlying emphysema and hyperinflation. Calvin Cabello MD Abdomen/Pelvis CT 01/16/17 0000 Signed Impressions: Service Date/Time: Tuesday, January 17, 2017 10:29 - CONCLUSION: 1. No evidence of primary tumor or metastatic disease in the abdomen. 2. Abnormal focal opacity in the right lateral lung base which is somewhat masslike in configuration on several images. Please see chest CT for further details. Calvin Cabello MD Chest X-Ray 01/15/17 1546 Signed Impressions: Service Date/Time: Sunday, January 15, 2017 15:54 - CONCLUSION: 1. Mild patchy opacity in the right lung base which could indicate early pneumonia. 2. Hyperinflation and underlying emphysema. Calvin Cabello MD Objective Remarks AAOx3, seeing durin dinner time eating, cachectic NAD Clear lungs BL S1S2 Abdomen soft, NT Medications and IVs Current Medications Medications (Trade) Dose Ordered Sig/Aleah Route Start Time Stop Time Status Last Admin (Ativan) 0.5 mg Q12H PRN PO 01/15/17 17:15 (Ativan Inj) 0.5 mg Q12H PRN IM 01/15/17 17:15 (Tylenol) 650 mg Q4H PRN PO 01/15/17 17:15 (Milk Of Magnesia Liq) 30 ml DAILY PRN PO 8/16/17 17:15 (Mag-Al Plus Susp Liq) 30 ml Q6H PRN PO 01/15/17 17:15 (Proair Hfa Inh) 2 puff Q6H PRN INH 01/15/17 18:00 (Aspirin Chew) 81 mg DAILY CHEW 01/16/17 09:00 01/20/17 09:02 (Lopressor) 25 mg DAILY PO 01/15/17 18:15 01/20/17 09:00 (Pravachol) 40 mg DAILY PO 01/15/17 18:15 01/20/17 09:02 (Ceftin) 500 mg Q12HR PO 01/15/17 21:00 01/20/17 21:00 (Duoneb Neb) 1 ampule Q4HR NEB PRN NEB 01/15/17 18:00 (Mucinex Er) 600 mg BID PO 01/15/17 21:00 01/20/17 09:02 (Catapres) 0.1 mg Q6H PRN PO 01/15/17 18:00 (Megace Liq) 400 mg DAILY PO 01/16/17 18:00 01/20/17 09:03 (Flagyl) 500 mg Q8HR PO 01/17/17 16:00 01/20/17 21:21 (Remeron) 30 mg HS PO 01/20/17 21:00 01/20/17 21:00 (Effexor Xr) 75 mg DAILY PO 01/21/17 09:00 A/P Assessment and Plan This a 71-year-old female patient with past medical history which includes COPD the patient has oxygen concentrator at home uses oxygen at night when needed but has not used her oxygen, "in a while," unable to quantify, hypertension and hyperlipidemia. Patient is currently an inpatient psychiatric center. Patient' s current weight is 31.8 kg. Per records patient's reports patient has not been eating; she stopped using her oxygen at night; she has been sleeping for days in a row without getting out of bed. Patient reports over the past year and a half she has lost approximately 30 pounds. Patient reports she has poor appetite and doesn't eat if she is not hungry. Patient reports she regular problem follows with her PCP Dr. Hebert and believes her last CT scan of the chest was approximately year ago does not report any abnormal findings. Severe malnutrition Anorexia 71-year-old female patient currently weighing 31.8 kg appears cachectic Consult dietitian- appreciate recommendations 1.Monitor for possible re-feeding syndrome 2.[place] Food Preferences 3.Discussed additional foods/liquids pt can "write-in" on her menus 4.Send Chocolate Ensure Enlive bid 5.Dietitian Following -Continue Megace -Also followed by psychiatry Pneumonia RLL treat for aspiration pneumonia Chest x-ray reviewed and reveals mild patchy opacities in the right lung base which could indicate early pneumonia. Hyperinflation and underlying emphysema Continue azithromycin, Ceftin and metronidazole CT abdomen pelvis reviewed and reveals: No evidence of primary tumor or metastatic disease in the abdomen. Abnormal focal capacity in the right lateral lung base which is somewhat masslike configuration on several images CT chest reviewed and reveals: 1. Focal consolidative opacity in the right lower lobe which is somewhat masslike in appearance on several images. This is nonspecific but most likely is infectious or inflammatory. Short-term CT followup is recommended after treatment in 3-4 weeks to rule out the possibility of an underlying true mass. 2. Underlying emphysema and hyperinflation. 01/20 appreciate pulmonary recommendations. Patient started on Ceftin and Azithromycin and Flagyl, it was recommended to repeat a Chest CT in 4 to 6 weeks to evaluate for resolution of pulmonary abnormalities observed on CT scan. Urinalysis reviewed and reveals large amount leukocyte esterase, moderate amount of urine bacteria Urine culture reviewed shows 10,000-50,000 mixed gram-positive purnima COPD- stable does not appear to be in acute exacerbation Continue home Anoro Ellipta inhaler daily Continue Pro Air rescue inhaler as needed Hypertension- stable Continue metoprolol 25 mg daily Monitor blood pressure trend will adjust as necessary Hyperlipidemia- chronic Continue simvastatin 20 mg daily DVT prophylaxis patient is ambulatory and low risk Discharge Planning I will sign off please reconsult as needed Alessio Roach MD Jan 20, 2017 22:47
[2017-01-21] MEDS: metroNIDAZOLE 500 MG TAB PO SCH ×2 (06:00→14:00)
[2017-01-21 06:14] VITALS: BP 157/70; PULSE 71; RESP 16; TEMP 97.9; O2SAT 98
[2017-01-21] MEDS ORDERED: VENLAFAXINE HCL XR 37.5 MG CAP PO SCH (09:00)
[2017-01-21] MEDS: MEGESTROL ACETATE SUSP 400 MG/10 ML CUP PO SCH (09:00)
[2017-01-21] MEDS: guaiFENesin E.R. 600 MG TAB PO SCH (09:00)
[2017-01-21] MEDS: UMECLIDINIUM 62.5 MCG/VILANTEROL 25 MCG INHALER INH SCH (09:00)
[2017-01-21] MEDS: CEFUROXIME AXETIL 500 MG TAB PO SCH (09:28)
[2017-01-21] MEDS: ASPIRIN 81 MG CHEW TAB CHEW SCH (09:29)
[2017-01-21] MEDS: METOPROLOL TARTRATE 25 MG TAB PO SCH (09:29)
[2017-01-21] MEDS: PRAVASTATIN SOD 40 MG TAB PO SCH (09:29)
[2017-01-21] MEDS ORDERED: MIRTA15 PO (10:38)
[2017-01-21] MEDS ORDERED: VENL1CAP38 PO (10:38)
[2017-01-21] MEDS ORDERED: PRAV40TA PO (10:38)
--- NOTE | 2017-01-21 13:53 | HHI.DS ---
Psychiatry Discharge Summary Inpatient Psychiatric care?: Yes Advance Directive: No Reason Not Provided: declined Mental Health AdvanceDirective: No Health Care Proxy: Yes Admission Admission Date Jan 15, 2017 at 17:01 Admission Diagnosis: (1) Severe major depression, single episode, without psychotic features ICD Code: F32.2 - Major depressive disorder, single episode, severe without psychotic features Brief History This is a 71-year-old female sent to us voluntarily by a nurse practitioner in [place]. The patient is accompanied by her . She is exhibiting extreme failure to sustain herself and she weighs 32 kg. Her states she sleeps literally 90% of the time and can go to bed for 4 or 5 days straight without doing anything more than using the bathroom. The patient denies being depressed but she shows significant anhedonia, significant appetite loss and significant weight loss. She is completely socially withdrawn. She demonstrates hypersomnia to a great degree. She has no energy. She feels hopeless regarding her condition. She has concentration and memory deficits at this time. She has anxiety and irritability. She is obviously not caring for herself sufficiently to sustain her life. Tobacco Use In Past 30 Days: No Tobacco Past 30 Days Alcohol Use: Never Hospital Course She was admitted the 2600 units due to depressive symptoms. Psychosocial a psychiatric assessment were performed. Immediate estimation were taken. Patient was restarted in psychotropics, Effexor 37.5 mg and Remeron 15 mg daily , she was also started in individual and group psychotherapy. Medications were titrated up as patient needed and she could tolerate. Since the beginning of the admission patient was resistant and oppositional to the admission, and she took her symptoms of depression very superficially. jet worker spoke with family members about the concern of patient's depression and they worked very closely with psychiatric team. The beginning of hospitalization patient was isolated, but later on became more participative. At the moment of discharge patient showed improvement in her mood and affect. She denies suicidal or homicidal ideation, she denies visual and auditory hallucinations. Patient has been compliant with her medications, with no significant side effects and a good response. Results Blood Pressure 157 / 70 Vital Signs Date Time Temp Pulse Resp B/P (MAP) Pulse Ox O2 Delivery O2 Flow Rate FiO2 01/21/17 06:14 97.9 71 16 157/70 (99) 98 Laboratory Results Test 01/16/17 11:50 Cholesterol Level 166 MG/DL (120-200) HDL Cholesterol 57.9 MG/DL (40.0-60.0) Hemoglobin A1c 5.1 % (4.3-6.0) LDL Cholesterol 84 MG/DL (0-99) Triglycerides Level 120 MG/DL (42-150) Summary of Procedures No Procedures done Imaging Last Impressions Chest CT 01/16/17 0000 Signed Impressions: Service Date/Time: Tuesday, January 17, 2017 10:29 - CONCLUSION: 1. Focal consolidative opacity in the right lower lobe which is somewhat masslike in appearance on several images. This is nonspecific but most likely is infectious or inflammatory. Short-term CT followup is recommended after treatment in 3-4 weeks to rule out the possibility of an underlying true mass. 2. Underlying emphysema and hyperinflation. Calvin Cabello MD Abdomen/Pelvis CT 01/16/17 0000 Signed Impressions: Service Date/Time: Tuesday, January 17, 2017 10:29 - CONCLUSION: 1. No evidence of primary tumor or metastatic disease in the abdomen. 2. Abnormal focal opacity in the right lateral lung base which is somewhat masslike in configuration on several images. Please see chest CT for further details. Calvin Cabello MD Chest X-Ray 01/15/17 1546 Signed Impressions: Service Date/Time: Sunday, January 15, 2017 15:54 - CONCLUSION: 1. Mild patchy opacity in the right lung base which could indicate early pneumonia. 2. Hyperinflation and underlying emphysema. Calvin Cabello MD Pending results at discharge: No Medications # of Antipsychotic meds at D/C: 0 Approp Antipsych med options 1 - Minimum of three failed multiple trials of monotherapy. 2 - Documented plan to taper to monotherapy due to previous use of multiple meds OR cross-taper in progress at D/C. 3 - Documentation of augmentation of Clozapine. 4 - Justification other than those listed in allowable values 1-3, document here : Discharge Discharge Date: Jan 21, 2017 Discharge Diagnosis: (1) Severe major depression, single episode, without psychotic features Diagnosis: Principal ICD Code: F32.2 - Major depressive disorder, single episode, severe without psychotic features Status: Acute Mental Status Exam at Disch elderly woman, in [facility], age appearing, she superficially cooperative, irritable, demanding to be discharged. Her mood is "I am fine", but affect, is irritable. Speech is reticent. Thought process is logical, coherent and relevant. Thought content is devoid of suicidal ideation, homicidal ideation, visual and auditory hallucinations. No paranoia, no delusions present. Insight, Impulse control, judgment are fair. Cognition is intact. Pt Condition on Discharge: Stable Discharge Disposition: Disch w/ Home Health Serv Discharge Instructions Diet Instructions: Heart Healthy Diet Activities you can perform: Weight Bearing as [place] Scheduled Appointment: Yeyo García Act Appointment Date: Jan 23, 2017 Appointment Time: 7:30 a.m. Discharge Time > 30 minutes Discharge/Advance Care Plan Health Problems: (1) Severe major depression, single episode, without psychotic features Goals to promote your health * To prevent worsening of your condition and complications * To maintain your health at the optimal level Directions to meet your goals Take your medications as prescribed Follow your dietary instruction Follow activity as directed Keep your appointments as scheduled Take your immunizations and boosters as scheduled If your symptoms worsen call your PCP, if no PCP go to Urgent Care Center or Emergency Room For 23/12 questions related to your inpatient stay or results of tests pending at discharge, please contact Dr. Josh Brody at Smoking is Dangerous to Your Health. Avoid second hand smoking Josh Brody MD Jan 21, 2017 13:53
== END 2017-01-21 14:30 | disposition home health service (06) | DRG 885 ==
LOC: NEPD 15:26 → NEDA 17:01 → H260 19:14
PROVIDERS: ADMIT Psychiatry & Neurology Psychiatry; ATTEND Psychiatry & Neurology Psychiatry
DX: F32.2 Major depressive disorder, single episode, severe without psychotic features (principal); J69.0 Pneumonitis due to inhalation of food and vomit; E43 Unspecified severe protein-calorie malnutrition; Z68.1 Body mass index [BMI] 19.9 or less, adult; R64 Cachexia; J44.9 Chronic obstructive pulmonary disease, unspecified; E78.5 Hyperlipidemia, unspecified; I10 Essential (primary) hypertension; Z81.8 Family history of other mental and behavioral disorders; Z87.891 Personal history of nicotine dependence; F41.9 Anxiety disorder, unspecified; G47.10 Hypersomnia, unspecified
CPT/HCPCS: 71010; 71260; 74177; 80053; 80061; 80307; 81001; 82306; 82607; 83036; 83735; 84100; 84439; 84443; 85025; 87086; 93005; 94150; 94640; 99285; Q9963; Q9967